=== PATIENT | female | born 1955 | race American Indian/Alaskan Native ===

== ENCOUNTER 2017-01-19 14:00 | Outpatient (CLI) | payer MEDICARE ==
--- NOTE | 2017-01-19 14:53 | Mammography Report ---
Bilateral mammogram: Compared to 01/19/16. CAD study utilized. Findings: Predominance adipose tissue bilaterally. Benign calcifications. Benign axillary nodes. No mass. Impression: Benign findings. Annual followup recommended. BI-RADS CATEGORY: 2 = Benign ACR BI-RADS MAMMOGRAPHIC CODES: 0 = Needs additional imaging evaluation; 1 = Negative; 2 = Benign; 3 = Probably benign; 4 = Suspicious; 5 = Malignant; 6 = Known biopsy-proven malignancy COMMENT: 1. Dense breast tissue, i.e., adenosis, fibrocystic changes, etc., may obscure an underlying neoplasm. 2. Approximately 10% of cancers are not detected with mammography. 3. A negative mammography report should not delay biopsy if a clinically suspicious mass is present. COMMENT: Patient follow-up letters are generated in [employer].
== END 2017-01-19 14:01 | disposition home or self-care (01) ==
LOC: MAMMO 14:00
PROVIDERS: ATTEND Family Medicine
DX: Z12.31 Encounter for screening mammogram for malignant neoplasm of breast (principal)
CPT/HCPCS: 77067; G0202

== ENCOUNTER 2017-11-26 14:47 | Emergency (ER) | payer MEDICARE ==
[2017-11-26 14:53] VITALS: BP 141/81
--- NOTE | 2017-11-26 17:04 | Emergency Department Report ---
ED General Adult HPI - General Chief complaint: Rectal Pain Stated complaint: HEMORRHOIDS Time Seen by Provider: 11/26/17 16:38 Source: patient Mode of arrival: Ambulatory Limitations: No Limitations - History of Present Illness Initial comments: This is a 62-year-old female here reports that she thinks she has hemorrhoids. She says she has had this in the past and she is having pain to her rectal area on the inside. She denies any rectal bleeding or any pus draining from her rectal area. Denies any rash or lesion. She says she felt something outside her rectal area and she pushed it back up then. She is using [id number] Preparation H but she is just that she needed to be checked. No bleeding noted. Patient said that she had colonoscopy 5 years ago and he found polyps and she is supposed to be scheduled for another colonoscopy soon. Denies any constipation. Pain at present is 0 out of 10. She said she only has pain when she dewayne, bend over, lift cough or strain. Denies any fever or chills. Denies any abdominal pain. Denies any urinary burning, frequency or urgency. Denies any back pain or fever or chills. MD Complaint: rectal pain Onset/Timin -: days(s) Location: genitals (rectal area) Radiation: non-radiation Severity scale (0 -10): 0 (no pain today.) Associated Symptoms: other (patient reports that she felt something like a hemorrhoid outside her rectal area and she pushed it back in but reports when she does certain activities she has rectal pain but no bleeding.). denies: confusion, chest pain, cough, diaphoresis, fever/chills, headaches, loss of appetite, nausea/vomiting, rash, seizure, shortness of breath, syncope, weakness Treatments Prior to Arrival: other (Preparation H) - Related Data Previous Rx's Medication Instructions Recorded Last Taken Type Metaxalone [Skelaxin] 800 mg PO TID #30 tablet 05/19/14 Unknown Rx traMADol [Ultram 50 MG tab] 50 mg PO Q6HR PRN #20 tablet 05/19/14 Unknown Rx Cyclobenzaprine [Flexeril 10mg] 10 mg PO TID PRN #20 tablet 05/29/14 Unknown Rx HYDROcodone/APAP 5-325 [[place] 1 each PO Q6HR PRN #14 tablet 05/29/14 Unknown Rx 5-325 mg TAB] Ibuprofen [Motrin] 800 mg PO Q8H PRN #30 tablet 05/29/14 Unknown Rx Cyclobenzaprine [Flexeril] 10 mg PO TID PRN #15 tablet 11/16/15 Unknown Rx Ibuprofen [Motrin] 800 mg PO Q8HR PRN #15 tablet 11/16/15 Unknown Rx Clindamycin [Clindamycin CAP] 600 mg PO BID #14 capsule 12/10/15 Unknown Rx Ibuprofen [Motrin] 800 mg PO Q8HR PRN #15 tablet 12/10/15 Unknown Rx Hydrocortisone [Anucort-HC SUPPOS] 25 mg RC BID PRN #10 supp.rect 11/26/17 Unknown Rx Allergies Allergy/AdvReac Type Severity Reaction Status Date / Time codeine AdvReac Severe Vomiting Verified 05/29/14 14:52 Penicillins AdvReac Severe HIVES,VOMIT Verified 05/29/14 14:52 ING ED Review of Systems ROS: Stated complaint: HEMORRHOIDS Other details as noted in HPI Constitutional: denies: chills, fever ENT: denies: throat pain Respiratory: denies: cough, shortness of breath, SOB with exertion, SOB at rest , wheezing Cardiovascular: denies: chest pain, palpitations, edema, syncope Gastrointestinal: other (rectal pain and hemorrhoid.). denies: abdominal pain, nausea, diarrhea, constipation, hematemesis, melena, hematochezia Genitourinary: denies: urgency, dysuria, frequency, hematuria, discharge Musculoskeletal: denies: back pain, joint swelling, arthralgia, myalgia Skin: denies: rash, lesions Neurological: denies: headache, weakness, paresthesias, abnormal gait ED Past Medical Hx - Past Medical History Previous Medical History?: Yes Hx Hypertension: Yes Hx Diabetes: Yes Additional medical history: Hemorrhoid - Surgical History Past Surgical History?: Yes Additional Surgical History: partial hysterectomy. Fatty tumor removed from right shoulder - Family History Family history: hypertension - Social History Smoking Status: Never Smoker Substance Use Type: None - Medications Home Medications: Home Medications Medication Instructions Recorded Confirmed Last Taken Type Metaxalone [Skelaxin] 800 mg PO TID #30 tablet 05/19/14 Unknown Rx traMADol [Ultram 50 MG tab] 50 mg PO Q6HR PRN #20 tablet 05/19/14 Unknown Rx Cyclobenzaprine [Flexeril 10mg] 10 mg PO TID PRN #20 tablet 05/29/14 Unknown Rx HYDROcodone/APAP 5-325 [[place] 1 each PO Q6HR PRN #14 tablet 05/29/14 Unknown Rx 5-325 mg TAB] Ibuprofen [Motrin] 800 mg PO Q8H PRN #30 tablet 05/29/14 Unknown Rx Cyclobenzaprine [Flexeril] 10 mg PO TID PRN #15 tablet 11/16/15 Unknown Rx Ibuprofen [Motrin] 800 mg PO Q8HR PRN #15 tablet 11/16/15 Unknown Rx Clindamycin [Clindamycin CAP] 600 mg PO BID #14 capsule 12/10/15 Unknown Rx Ibuprofen [Motrin] 800 mg PO Q8HR PRN #15 tablet 12/10/15 Unknown Rx Hydrocortisone [Anucort-HC SUPPOS] 25 mg RC BID PRN #10 supp.rect 11/26/17 Unknown Rx ED Physical Exam - General Limitations: No Limitations General appearance: alert, in no apparent distress - Head Head exam: Present: atraumatic, normocephalic, normal inspection - Eye Eye exam: Present: normal appearance, PERRL, EOMI Pupils: Present: normal accommodation - ENT ENT exam: Present: normal orophraynx, mucous membranes moist - Neck Neck exam: Present: normal inspection, full ROM. Absent: tenderness, lymphadenopathy - Respiratory Respiratory exam: Present: normal lung sounds bilaterally. Absent: respiratory distress, chest wall tenderness - Cardiovascular Cardiovascular Exam: Present: regular rate, normal rhythm, normal heart sounds. Absent: systolic murmur, diastolic murmur - GI/Abdominal GI/Abdominal exam: Present: soft, normal bowel sounds. Absent: distended, tenderness, rigid, organomegaly, mass, bruit, pulsatile mass - Rectal Rectal exam: Present: normal inspection, normal rectal tone, hemorrhoids ( rectal exam with hemorrhoid on the right internal rectum. Tender to palpate without any bleeding.), tenderness, other (internal hemorrhoid fell. No external hemorrhoids seen. External rectal area without any rash lesion, induration or drainage. No erythema noted and nontender to palpate.). Absent: mass - Extremities Exam Extremities exam: Present: normal inspection, full ROM, normal capillary refill , other (No cce. + 2 pulses in all extremities, no neurovascular compromise). Absent: tenderness, pedal edema, joint swelling, calf tenderness - Back Exam Back exam: Present: normal inspection, full ROM, other (ambulates without any difficulties). Absent: tenderness, CVA tenderness (R), CVA tenderness (L), muscle spasm, paraspinal tenderness, vertebral tenderness, rash noted - Neurological Exam Neurological exam: Present: alert, oriented X3, normal gait - Psychiatric Psychiatric exam: Present: normal affect, normal mood - Skin Skin exam: Present: warm, dry, intact, normal color. Absent: rash ED Course Vital Signs 11/26/17 14:50 Temperature 98.5 F Pulse Rate 93 H Respiratory 16 Rate Blood Pressure 141/81 O2 Sat by Pulse 98 Oximetry - Reevaluation(s) Reevaluation #1: 11/26/17 17:40 Patient stable throughout ED course. ED Medical Decision Making - Medical Decision Making This is a 62-year-old female presents to emergency room reporting that she has been having rectal pain for 4 days and she has had similar incident in the past. She said she had hemorrhoids and she fell 1 and pushed it back in and she has been using Preparation H and she is here to be checked. Patient denies any rectal bleeding. Her last colonoscopy was years ago and she says she is due for another one soon. She is not having any rectal pain in the emergency room she said only with bending, straining, cough or stooping. Patient was examined by myself and exam is normal except rectal exam with internal hemorrhoid to right side that is tender to palpate. No bleeding noted. Patient says that prior to coming to the hospital she pushed hemorrhoid back in. Patient rectal tone is normal and she has no signs of inflammation to the external rectal area. I discussed diagnosis and treatment plan with her and I also told her that she needs to follow up with her primary care physician in 2 days which she does have one. I discussed with her that if she developed bleeding and increased pain she needs to return to the emergency room or go to her primary care physician who can refer her to her surgeon. No thrombosed hemorrhoids seen. Patient voiced understanding of information and diagnosis. A/P Internal rectal [id number], no bleeding. Patient will be discharged home on Anucort follow up with her primary care physician in 2 days and if needed primary care physician refer her to surgery. Rectal pain-discussed the patient she can take [id number] Tylenol that does not have aspirin and it for pain per dosing chart guideline. Patient discharged home in stable condition. Her vital signs are stable she is afebrile. She is in no pain at present. Tolerated rectal exam well. She is to follow-up with her primary care in 2 days and she voiced understanding. Discharged home with prescription for Anucort suppository - Differential Diagnosis rectal mass, rectal abscess, GI bleed, external versus internal hemorrhoid Critical care attestation.: If time is entered above; I have spent that time in minutes in the direct care of this critically ill patient, excluding procedure time. ED Disposition Clinical Impression: Internal hemorrhoids without complication, Rectal pain Disposition: TO HOME OR SELFCARE Is pt being admited?: No Does the pt Need Aspirin: No Condition: Stable Instructions: Hemorrhoids (ED) Additional Instructions: Please follow-up with your primary care physician Return to the emergency room if you experience bleeding and increased pain. Take Medication as prescribed Prescriptions: Hydrocortisone [Anucort-HC SUPPOS] 25 mg RC BID PRN #10 supp.rect PRN Reason: Hemorrhoids Referrals: PRIMARY CARE, [Primary Care Provider] - 11/28/17 Forms: Work/School Release Form(ED)
== END 2017-11-26 17:53 | disposition home or self-care (01) ==
LOC: ED 14:47
DX: K64.8 Other hemorrhoids (principal); I10 Essential (primary) hypertension; E11.9 Type 2 diabetes mellitus without complications; Z90.710 Acquired absence of both cervix and uterus; Z88.6 Allergy status to analgesic agent; Z88.0 Allergy status to penicillin
CPT/HCPCS: 99282

== ENCOUNTER 2019-02-28 12:36 | Outpatient (CLI) | payer MEDICARE ==
--- NOTE | 2019-02-28 16:35 | Mammography Report ---
DIGITAL SCREENING MAMMOGRAM WITH CAD, 02/28/2019 INDICATION: Routine screening mammography. TECHNIQUE: Digital bilateral 2D mammography was obtained in the craniocaudal and mediolateral obliq ue projections. This examination was interpreted with the benefit of Computer-Aided Detection analysi s. COMPARISON: 02/27/2018 FINDINGS: Breast Density: There are scattered areas of fibroglandular density. There is no evidence of dominant mass, suspicious calcifications or architectural distortion in eithe r breast. A few scattered bilateral benign calcifications. IMPRESSION: No mammographic evidence of malignancy. Follow up recommendation: Routine yearly BI-RADS Category 2: Benign. A "normal" or negative report should not discourage follow up or biopsy of a clinically significant f inding. A written summary of these findings will be mailed to the patient. The patient will be entered into a mammography reporting system which will generate a reminder letter for the patient's next appointmen t at the appropriate interval. The [employer] recommends yearly mammograms starting at age 40 and continuing as l anahy as a woman is in good health. Breast MRI is recommended for women with an approximate 20-25% or greater lifetime risk of breast cancer, including women with a strong family history of breast or ova skyler cancer or who have been treated for Hodgkin's disease. Signer Name: Stanley Degroot MD Signed: 02/28/2019 4:31 PM Workstation Name: [id number]
== END 2019-02-28 12:37 | disposition home or self-care (01) ==
LOC: MAMMO 12:36
PROVIDERS: ATTEND Internal Medicine
DX: Z12.31 Encounter for screening mammogram for malignant neoplasm of breast (principal)
CPT/HCPCS: 77067

== ENCOUNTER 2020-03-04 10:08 | Outpatient (CLI) | payer MEDICARE ==
--- NOTE | 2020-03-05 07:50 | Mammography Report ---
BILATERAL DIGITAL SCREENING MAMMOGRAM WITH CAD HISTORY: Screening mammogram. TECHNIQUE: Routine digital mammographic imaging performed. This examination was interpreted with jonah dang benefit of Computer-aided Detection analysis. COMPARISON: 02/28/2019, 02/27/2018, 01/19/2017. FINDINGS: Breast Density: scattered fibroglandular appearance of the breast tissue. Digital CC and MLO views demonstrate no mammographic evidence of malignancy. IMPRESSION: No mammographic evidence of malignancy. If the clinical examination remains stable, recommend bilate ral mammogram in approximately one year. BIRADS 1: Negative. FURTHER INFORMATION: According to the [employer], yearly mammograms are recommend ed starting at age 40 and continuing as long as a woman is in good health. Clinical Breast Exams shou ld be part of a periodic health exam-about every 3 years for women in their 20s and 30s and every yea r for women 40 and over. Breast self exam is an option for women starting in their 20s. Any breast ch sheri noted on a breast self exam should be reported promptly to the patient's healthcare provider. Br east MRI is recommended for women with an approximately 20-25% or greater lifetime risk of breast can cer, including women with a strong family history of breast or ovarian cancer and women who have been treated for Hodgkin's disease. A negative Mammography report should not discourage follow up or biopsy of a clinically significant f inding and/or abnormality. Dense breast tissue may obscure small neoplasms. The patient will be entered into a reminder system with a target due date for the next screening mamm ogram. Signer Name: Graeme Gutierrez MD Signed: 03/05/2020 7:45 AM Workstation Name: [id number]
== END 2020-03-04 10:09 | disposition home or self-care (01) ==
LOC: MAMMO 10:08
PROVIDERS: ATTEND Internal Medicine
DX: Z12.31 Encounter for screening mammogram for malignant neoplasm of breast (principal); N64.89 Other specified disorders of breast
CPT/HCPCS: 77067

== ENCOUNTER 2021-01-30 15:20 | Emergency (ER) | payer MEDICARE ==
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
[2021-01-30 17:38] LABS: Alanine Aminotransferase 20 units/L (7-56); Albumin 4.7 g/dL (3.9-5); BUN/Creatinine Ratio 20; Blood Urea Nitrogen 18 mg/dL (7-17); Calcium 10.6 mg/dL (8.4-10.2); Hemolysis Index 19
[2021-01-30 18:10] LABS: Basophils % (Auto) 0.7 % (0.0-1.8); Eosinophils # (Auto) 0.2 K/mm3 (0.0-0.4); Eosinophils % (Auto) 2.9 % (0.0-4.3); Hematocrit 38.6 % (30.3-42.9); Hemoglobin 13.2 gm/dl (10.1-14.3); Lymphocytes # (Auto) 1.7 K/mm3 (1.2-5.4); Lymphocytes % (Auto) 24.7 % (13.4-35.0); Mean Corpuscular HGB Conc 34 % (30-34); Mean Corpuscular Volume 84 fl (79-97); Monocytes # (Auto) 0.4 K/mm3 (0.0-0.8); Monocytes % (Auto) 6.7 % (0.0-7.3); Platelet Count 196 K/mm3 (140-440); Red Blood Count 4.59 M/mm3 (3.65-5.03); Red Cell Distribution Width 14.8 % (13.2-15.2)
[2021-01-30 18:35] VITALS: BP 135/95
== END 2021-01-30 18:48 | disposition home or self-care (01) ==
LOC: ED 15:20
DX: M79.602 Pain in left arm (principal); I10 Essential (primary) hypertension; E11.8 Type 2 diabetes mellitus with unspecified complications; K64.9 Unspecified hemorrhoids; Z90.711 Acquired absence of uterus with remaining cervical stump; Z98.890 Other specified postprocedural states; Z88.0 Allergy status to penicillin; Z88.5 Allergy status to narcotic agent
CPT/HCPCS: 36415; 80053; 82550; 85025; 99284

== ENCOUNTER 2021-03-18 09:09 | Outpatient (CLI) | payer MEDICARE | END 2021-03-18 09:10 | disposition home or self-care (01) | LOC: MAMMO 09:09 | PROVIDERS: ATTEND Physician Assistant | DX: Z12.31 Encounter for screening mammogram for malignant neoplasm of breast (principal) | CPT/HCPCS: 77067 ==

== ENCOUNTER 2021-04-11 17:10 | Emergency (ER) | payer MEDICARE ==
[2021-04-11] MEDS ORDERED: ONDANSETRON 4 MG/2 ML INJ IV ONE (17:32)
[2021-04-11] MEDS ORDERED: SODIUM CHLORIDE 0.9% 1000 ML 1,000 ML IV ONE (17:32)
[2021-04-11 18:43] LABS: Basophils % (Auto) 0.6 % (0.0-1.8); Eosinophils # (Auto) 0.2 K/mm3 (0.0-0.4); Eosinophils % (Auto) 2.8 % (0.0-4.3); Hematocrit 38.7 % (30.3-42.9); Hemoglobin 12.2 gm/dl (10.1-14.3); Lymphocytes # (Auto) 0.6 K/mm3 (1.2-5.4); Lymphocytes % (Auto) 11.1 % (13.4-35.0); Mean Corpuscular HGB Conc 32 % (30-34); Mean Corpuscular Volume 85 fl (79-97); Monocytes # (Auto) 0.5 K/mm3 (0.0-0.8); Monocytes % (Auto) 9.9 % (0.0-7.3); Platelet Count 172 K/mm3 (140-440); Red Blood Count 4.54 M/mm3 (3.65-5.03); Red Cell Distribution Width 14.9 % (13.2-15.2)
[2021-04-11 18:51] LABS: Alanine Aminotransferase 23 units/L (7-56); Albumin 4.3 g/dL (3.9-5); BUN/Creatinine Ratio 21; Blood Urea Nitrogen 19 mg/dL (7-17); Calcium 9.2 mg/dL (8.4-10.2); Hemolysis Index 7
--- NOTE | 2021-04-11 18:54 | XRay Report ---
CHEST 2 VIEWS INDICATION / CLINICAL INFORMATION: Cough and fever. Nausea and vomiting. COMPARISON: 05/19/14. FINDINGS: SUPPORT DEVICES: None. HEART / MEDIASTINUM: The heart size and pulmonary vasculature are normal. LUNGS / PLEURA: Lung volumes are slightly reduced. There is minimal bibasilar subsegmental atelectasi s. No pneumothorax. ADDITIONAL FINDINGS: No significant additional findings. IMPRESSION: Slightly reduced lung volumes with minimal bibasilar subsegmental atelectasis. I see no e vidence of pneumonia or aspiration. Signer Name: Mohsen So MD Signed: 04/11/2021 6:49 PM Workstation Name: [id number]
--- NOTE | 2021-04-11 19:06 | Emergency Department Report ---
ED General Adult HPI - General Chief complaint: Nausea/Vomiting/Diarrhea Stated complaint: NAUSEA AND VOMITING Time Seen by Provider: 04/11/21 17:27 Source: patient Mode of arrival: Ambulatory Limitations: No Limitations - History of Present Illness Initial comments: Patient is a 65-year-old female presents emergency room with complaints of nausea and vomiting and diarrhea that began yesterday. She has associated cough, headache, sore throat. She states that she has had a subjective fever. She reports that she has been around someone with URI symptoms but does not know what they have. She states that she has received 2 doses of Covid vaccine. She denies any abdominal pain, ear pain, shortness of breath, chest pain. Allergy to codeine and penicillin. Severity scale (0 -10): 5 - Related Data Previous Rx's Medication Instructions Recorded Last Taken Type Metaxalone [Skelaxin] 800 mg PO TID #30 tablet 05/19/14 Unknown Rx traMADoL [Ultram 50 MG tab] 50 mg PO Q6HR PRN #20 tablet 05/19/14 Unknown Rx Cyclobenzaprine [Flexeril 10mg] 10 mg PO TID PRN #20 tablet 05/29/14 Unknown Rx HYDROcodone/APAP 5-325 [[place] 1 each PO Q6HR PRN #14 tablet 05/29/14 Unknown Rx 5-325 mg TAB] Ibuprofen [Motrin] 800 mg PO Q8H PRN #30 tablet 05/29/14 Unknown Rx Cyclobenzaprine [Flexeril] 10 mg PO TID PRN #15 tablet 11/16/15 Unknown Rx Ibuprofen [Motrin] 800 mg PO Q8HR PRN #15 tablet 11/16/15 Unknown Rx Clindamycin [Clindamycin CAP] 600 mg PO BID #14 capsule 12/10/15 Unknown Rx Ibuprofen [Motrin] 800 mg PO Q8HR PRN #15 tablet 12/10/15 Unknown Rx Hydrocortisone [Anucort-HC SUPPOS] 25 mg RC BID PRN #10 supp.rect 11/26/17 Unknown Rx Naproxen 375 mg PO BID PRN #14 tablet 01/30/21 Unknown Rx methOCARBAMOL [Robaxin TAB] 500 mg PO BID PRN #14 tab 01/30/21 Unknown Rx Benzonatate [Tessalon Perles] 100 mg PO Q8HR PRN #10 capsule 04/11/21 Unknown Rx Ondansetron [Zofran Odt] 4 mg PO Q8HR PRN #10 tab.rapdis 04/11/21 Unknown Rx guaiFENesin ER [Mucinex ER] 600 mg PO Q12H #14 tablet.er 04/11/21 Unknown Rx Allergies Allergy/AdvReac Type Severity Reaction Status Date / Time codeine AdvReac Severe Vomiting Verified 05/29/14 14:52 Penicillins AdvReac Severe HIVES,VOMIT Verified 05/29/14 14:52 ING ED Review of Systems ROS: Stated complaint: NAUSEA AND VOMITING Other details as noted in HPI Comment: All other systems reviewed and negative ED Past Medical Hx - Past Medical History Hx Hypertension: Yes Hx Diabetes: Yes Additional medical history: Hemorrhoid - Surgical History Additional Surgical History: partial hysterectomy. Fatty tumor removed from right shoulder - Social History Smoking Status: Never Smoker Substance Use Type: None - Medications Home Medications: Home Medications Medication Instructions Recorded Confirmed Last Taken Type Metaxalone [Skelaxin] 800 mg PO TID #30 tablet 05/19/14 Unknown Rx traMADoL [Ultram 50 MG tab] 50 mg PO Q6HR PRN #20 tablet 05/19/14 Unknown Rx Cyclobenzaprine [Flexeril 10mg] 10 mg PO TID PRN #20 tablet 05/29/14 Unknown Rx HYDROcodone/APAP 5-325 [[place] 1 each PO Q6HR PRN #14 tablet 05/29/14 Unknown Rx 5-325 mg TAB] Ibuprofen [Motrin] 800 mg PO Q8H PRN #30 tablet 05/29/14 Unknown Rx Cyclobenzaprine [Flexeril] 10 mg PO TID PRN #15 tablet 11/16/15 Unknown Rx Ibuprofen [Motrin] 800 mg PO Q8HR PRN #15 tablet 11/16/15 Unknown Rx Clindamycin [Clindamycin CAP] 600 mg PO BID #14 capsule 12/10/15 Unknown Rx Ibuprofen [Motrin] 800 mg PO Q8HR PRN #15 tablet 12/10/15 Unknown Rx Hydrocortisone [Anucort-HC SUPPOS] 25 mg RC BID PRN #10 supp.rect 11/26/17 Unknown Rx Naproxen 375 mg PO BID PRN #14 tablet 01/30/21 Unknown Rx methOCARBAMOL [Robaxin TAB] 500 mg PO BID PRN #14 tab 01/30/21 Unknown Rx Benzonatate [Tessalon Perles] 100 mg PO Q8HR PRN #10 capsule 04/11/21 Unknown Rx Ondansetron [Zofran Odt] 4 mg PO Q8HR PRN #10 tab.rapdis 04/11/21 Unknown Rx guaiFENesin ER [Mucinex ER] 600 mg PO Q12H #14 tablet.er 04/11/21 Unknown Rx ED Physical Exam - General Limitations: No Limitations General appearance: alert, in no apparent distress - Head Head exam: Present: atraumatic, normocephalic - Eye Eye exam: Present: normal appearance - ENT ENT exam: Present: normal orophraynx, mucous membranes moist - Respiratory Respiratory exam: Present: normal lung sounds bilaterally. Absent: respiratory distress, wheezes, rales, rhonchi, stridor, chest wall tenderness, accessory muscle use, decreased breath sounds, prolonged expiratory - Cardiovascular Cardiovascular Exam: Present: normal rhythm, tachycardia, normal heart sounds. Absent: systolic murmur, diastolic murmur, rubs, gallop - GI/Abdominal GI/Abdominal exam: Present: soft, normal bowel sounds. Absent: distended, tenderness, guarding, rebound, rigid - Neurological Exam Neurological exam: Present: alert, oriented X3 - Psychiatric Psychiatric exam: Present: normal affect, normal mood - Skin Skin exam: Present: warm, dry, intact ED Course Vital Signs 04/11/21 04/11/21 17:18 19:35 Temperature 99.2 F 97.8 F Pulse Rate 115 H 90 Respiratory 20 18 Rate Blood Pressure 140/90 146/93 [Right] O2 Sat by Pulse 99 100 Oximetry ED Medical Decision Making - Lab Data Result diagrams: 04/11/21 17:50 04/11/21 17:50 Lab Results 04/11/21 04/11/21 Range/Units 17:50 17:50 WBC 5.5 (4.5-11.0) K/mm3 RBC 4.54 (3.65-5.03) M/mm3 Hgb 12.2 (10.1-14.3) gm/dl Hct 38.7 (30.3-42.9) % MCV 85 (79-97) fl MCH 27 L (28-32) pg MCHC 32 (30-34) % RDW 14.9 (13.2-15.2) % Plt Count 172 (140-440) K/mm3 Lymph % (Auto) 11.1 L (13.4-35.0) % [place] % (Auto) 9.9 H (0.0-7.3) % Eos % (Auto) 2.8 (0.0-4.3) % Baso % (Auto) 0.6 (0.0-1.8) % Lymph # (Auto) 0.6 L (1.2-5.4) K/mm3 [place] # (Auto) 0.5 (0.0-0.8) K/mm3 Eos # (Auto) 0.2 (0.0-0.4) K/mm3 Baso # (Auto) 0.0 (0.0-0.1) K/mm3 Seg Neutrophils % 75.6 H (40.0-70.0) % Seg Neutrophils # 4.2 (1.8-7.7) K/mm3 Sodium 139 (137-145) mmol/L Potassium 3.7 (3.6-5.0) mmol/L Chloride 101.1 (98-107) mmol/L Carbon Dioxide 23 (22-30) mmol/L Anion Gap 19 mmol/L BUN 19 H (7-17) mg/dL Creatinine 0.9 (0.6-1.2) mg/dL Estimated GFR > 60 ml/min BUN/Creatinine Ratio 21 % Glucose 111 H (65-100) mg/dL Calcium 9.2 (8.4-10.2) mg/dL Total Bilirubin 0.30 (0.1-1.2) mg/dL AST 24 (5-40) units/L ALT 23 (7-56) units/L Alkaline Phosphatase 64 (35-129) units/L Total Protein 7.0 (6.3-8.2) g/dL Albumin 4.3 (3.9-5) g/dL Albumin/Globulin Ratio 1.6 % - Radiology Data Radiology results: report reviewed Ordering Physician: DEE PARR Date of Service: 04/11/21 Procedure(s): XR chest routine 2V Accession Number(s): [id number] cc: DEE PARR Fluoro Time In Minutes: CHEST 2 VIEWS INDICATION / CLINICAL INFORMATION: Cough and fever. Nausea and vomiting. COMPARISON: 05/19/14. FINDINGS: SUPPORT DEVICES: None. HEART / MEDIASTINUM: The heart size and pulmonary vasculature are normal. LUNGS / PLEURA: Lung volumes are slightly reduced. There is minimal bibasilar subsegmental atelectasis. No pneumothorax. ADDITIONAL FINDINGS: No significant additional findings. IMPRESSION: Slightly reduced lung volumes with minimal bibasilar subsegmental atelectasis. I see no evidence of pneumonia or aspiration. Signer Name: Mohsen So MD Signed: 04/11/2021 6:49 PM Workstation Name: [id number] Transcribed By: RT Dictated By: Mohsen So MD Electronically Authenticated By: Mohsen So MD Signed Date/Time: 04/11/211848 DD/ 47 TD/TT: - Medical Decision Making Patient is a 65-year-old female presents emergency room with complaints of nausea and vomiting and diarrhea that began yesterday. She has associated co ugh, headache, sore throat. She states that she has had a subjective fever. She reports that she has been around someone with URI symptoms but does not know what they have. She states that she has received 2 doses of Covid vaccine. She denies any abdominal pain, ear pain, shortness of breath, chest pain. Allergy to codeine and penicillin. Initial vitals with tachycardia which improved upon repeat. Labs are stable. Chest x-ray IMPRESSION: Slightly reduced lung volumes with minimal bibasilar subsegmental atelectasis. I see no evidence of pneumonia or aspiration. Patient given medications while in the emergency department with some improvement of symptoms, had no further episodes of vomiting. Symptoms likely related to URI. Advised patient Please take medication as prescribed. Increase your fluid intake. Follow-up with a primary care doctor. Return to emergency room for any new or worsening symptoms. Recommend outpatient COVID-19 testing if positive will need to self quarantine for 10 days of onset of symptoms. Critical care attestation.: If time is entered above; I have spent that time in minutes in the direct care of this critically ill patient, excluding procedure time. ED Disposition Clinical Impression: Upper respiratory infection Qualifiers: URI type: unspecified URI Qualified Code(s): J06.9 - Acute upper respiratory infection, unspecified Disposition: HOME / SELF CARE / HOMELESS Is pt being admited?: No Does the pt Need Aspirin: No Condition: Stable Instructions: Viral Respiratory Infection Additional Instructions: Please take medication as prescribed. Increase your fluid intake. Follow-up with a primary care doctor. Return to emergency room for any new or worsening symptoms. Recommend outpatient COVID-19 testing if positive will need to self quarantine for 10 days of onset of symptoms. Prescriptions: guaiFENesin ER [Mucinex ER] 600 mg PO Q12H #14 tablet.er Benzonatate [Tessalon Perles] 100 mg PO Q8HR PRN #10 capsule PRN Reason: cough Ondansetron [Zofran Odt] 4 mg PO Q8HR PRN #10 tab.rapdis PRN Reason: nausea/vomiting Referrals: PRIMARY CAREMD [Primary Care Provider] - 3-5 Days MARIANNA SHARPE MD [Staff Physician] - 3-5 Days [facility] [Provider Group] - 3-5 Days Time of Disposition: 19:05 Print Language: IRISH
[2021-04-11 19:37] VITALS: BP 146/93
== END 2021-04-11 19:37 | disposition home or self-care (01) ==
LOC: ED 17:10
DX: J06.9 Acute upper respiratory infection, unspecified (principal); I10 Essential (primary) hypertension; E11.8 Type 2 diabetes mellitus with unspecified complications; K64.9 Unspecified hemorrhoids; Z90.711 Acquired absence of uterus with remaining cervical stump; Z98.890 Other specified postprocedural states; Z88.0 Allergy status to penicillin; Z88.5 Allergy status to narcotic agent
CPT/HCPCS: 36415; 71046; 80053; 85025; 96361; 96374; 99284; J2405; J7030; Q0162